=== PATIENT | female | born 2000 | race Caucasian/White ===

== ENCOUNTER 2023-10-29 21:30 | Outpatient (CLI) | payer OTHER, MEDICAID, SELFPAY ==
[2023-10-29 22:05] VITALS: BMI 31.2
[2023-10-29 22:11] LABS: Microscopic, Urine URINE MICROSCOPIC (MICROSCOPIC)
[2023-10-29 22:28] LABS: Appearance,Urine CLEAR (Clear); Bilirubin,Urine Negative (Negative); Blood, Urine Negative (Negative); Glucose,Urine (UA) Negative (Negative); Ketones,Urine Negative (Negative); Leukocyte Esterase,Urine Negative (Negative); Nitrate,Urine Negative (Negative); Protein,Urine Negative (Negative); Specific Gravity, Urine <= 1.005 (1.005-1.030); Urobilinogen,Urine 0.2 EU/dl (0.2)
[2023-10-29 22:34] LABS: Color,Urine Straw (Yellow); Fetal Membrane Rupture (Rapid) Negative (Negative)
[2023-10-29 22:36] LABS: Amphetamine/Metha Screen,Urine Negative ng/ml (<1000)
[2023-10-29 22:37] LABS: Barbiturates Screen,Urine Negative ng/ml (<200); Benzodiazepines Screen,Urine Negative ng/ml (<200)
[2023-10-29 22:38] LABS: Cannabinoid Screen,Urine Negative ng/ml (<50)
[2023-10-29 22:39] LABS: Cocaine Screen,Urine Negative ng/ml (<300); Methadone Screen,Urine Negative ng/ml (<300)
[2023-10-29 22:40] LABS: Opiate Screen,Urine Negative ng/ml (<300)
[2023-10-29 22:41] LABS: Phencyclidine Screen,Urine Negative ng/ml (<25)
[2023-10-29 22:46] VITALS: BP 109/69; PULSE 85; RESP 16; TEMP 37.3; O2SAT 99; BMI 31.2
[2023-10-29 22:56] LABS: WBC,Urine Occasional #/hpf (0-3)
[2023-10-29 22:57] LABS: Bacteria,Urine Trace /lpf
== END 2023-10-29 23:00 | disposition home or self-care (01) ==
LOC: OBOUT 21:41 → OB 21:41
PROVIDERS: Visit Provider Obstetrics & Gynecology
DX: O42.911 Preterm premature rupture of membranes, unspecified as to length of time between rupture and onset of labor, first trimester (principal); Z3A.12 12 weeks gestation of pregnancy
CPT/HCPCS: 80307; 81001; 84112; G0463